=== PATIENT | male | born 1970 | race Caucasian/White ===

== ENCOUNTER 2017-08-19 13:01 | Emergency (ER) | payer OTHER ==
[2017-08-19] MEDS ORDERED: PERCOCET 5/325M1 TAB PO (15:27)
[2017-08-19 15:45] VITALS: BP 129/74
== END 2017-08-19 15:45 | disposition home or self-care (01) | DRG 563 ==
LOC: ED 13:01
PROC: 2W3DX1Z Immobilization of Left Lower Arm using Splint (ICD-10-PCS; principal; 2017-08-19)
DX: S52.502A Unspecified fracture of the lower end of left radius, initial encounter for closed fracture (principal); V86.65XA Passenger of 3- or 4- wheeled all-terrain vehicle (ATV) injured in nontraffic accident, initial encounter